=== PATIENT | female | born 1950 ===

== ENCOUNTER 2024-10-30 06:11 | Day surgery (SDC) | payer OTHER, SELFPAY ==
[2024-10-30 07:16] LABS: Glucose - Point of Care 95 mg/dl (70-99)
== END 2024-10-30 08:26 | disposition home or self-care (01) ==
LOC: GI 06:11
PROVIDERS: ATTENDING PHYSICIAN Internal Medicine Gastroenterology
DX: Z12.11 Encounter for screening for malignant neoplasm of colon (principal); K57.30 Diverticulosis of large intestine without perforation or abscess without bleeding; D12.5 Benign neoplasm of sigmoid colon; K64.8 Other hemorrhoids; Z86.0100 Personal history of colon polyps, unspecified; Z98.0 Intestinal bypass and anastomosis status
CPT/HCPCS: 45385; 88305; 82962